=== PATIENT | female | born 1965 | race Caucasian/White ===

== ENCOUNTER 2017-12-03 10:33 | Emergency (ER) | payer SELFPAY ==
[2017-12-03] MEDS ORDERED: Ondansetron HCl/PF 4 MG/2 ML Vial ONE (10:44)
[2017-12-03] MEDS ORDERED: Ketorolac Tromethamine 30 MG/ML VIAL ONE (11:12)
[2017-12-03 11:28] LABS: #Basophils 0.1 thou/uL (0.0-0.2); #Eosinphils 0.1 thou/uL (0.0-0.7); #Lymphocytes 2.5 thou/uL (1.20-3.40); #Monocytes 0.8 thou/uL (0.11-0.59); #Neutrophils 8.2 thou/uL (1.40-6.50); %Basophils 0.9 % (0.0-1.0); %Lymphocytes 21.6 % (21.0-51.0); %Monocytes 6.8 % (0.0-10.0); %Neutrophils 69.6 % (42.0-75.0); Hemoglobin 16.4 g/dL (12.0-16.0); Mean Corpuscular HGB CONC 34.6 g/dL (32.0-36.0); Mean Corpuscular Hemoglobin 31.5 pg (27.0-31.0); Mean Corpuscular Volume 91.2 fl (81.0-99.0); Mean Platelet Volume 7.7 fL (7.4-10.4); Platelet Count 283 thou/uL (130-400); RBC Distribution Width 12.3 % (11.5-14.5); Red Blood Cell (RBC) Count 5.19 mill/uL (4.20-5.40); White Blood Cell (WBC) Count 11.7 thou/uL (4.8-10.8)
[2017-12-03 11:31] LABS: ALT (SGPT) 40 U/L (8-55); AST (SGOT) 24 U/L (5-34); Albumin 4.1 g/dL (3.5-5.0); Alkaline Phosphatase 63 U/L (40-150); Anion Gap 15 mmol/L (10-20); BUN (Urea Nitrogen) 8 mg/dL (7.0-18.7); Bilirubin, Total 0.3 mg/dL (0.2-1.2); CK (CPK) 48 U/L (29-168); CKMB 0.9 ng/mL (0-6.6); Calc. Creatinine Clearance 0 mL/min (70-130); Calcium 9.4 mg/dL (7.8-10.44); Carbon Dioxide 21 mmol/L (22-29); Chloride 107 mmol/L (98-107); Estimated GFR-MDRD Greater than 90; Glucose 97 mg/dL (70-105); Lipase 18 U/L (8-78); Potassium 4.2 mmol/L (3.5-5.1); Protein, Total 8.1 g/dL (6.0-8.3); Sodium 139 mmol/L (136-145); Troponin I Less than 0.010 ng/mL (< 0.028)
--- NOTE | 2017-12-03 11:45 | RAD ---
FRONTAL VIEW OF THE CHEST: COMPARISON: . HISTORY: Chest pain for 24 hours and nausea for 4 days. FINDINGS: Single view of the chest shows a normal sized cardiomediastinal silhouette. There is no evidence of c onsolidation, mass, or pleural effusion. The bones are unremarkable. IMPRESSION: No evidence of acute cardiopulmonary disease. POS: [facility]
[2017-12-03 12:29] LABS: Bilirubin Negative (Negative); Blood, Urine Moderate (Negative); Glucose, Urine (Dipstick) Negative (Negative); Leukocyte Negative (Negative); Nitrite Negative (Negative); Protein, Urine (Dipstick) 100 mg/dL (Neg-Trace); Specific Gravity, Urine 1.027 (1.002-1.036); Urobilinogen 0.2 mg/dL (0.2-1.0); pH, Urine 5.5 (5.0-9.0)
[2017-12-03 12:30] LABS: Clarity Slightly Cloudy (Clear)
[2017-12-03 12:31] LABS: Pregnancy Test - Urine (BHCG) Negative (Negative); Pregu Control Background? CLEAR/WHITE (CLR/WHITE); Pregu Control Bar Appear? YES (CONTROL BAR); Specific Gravity 1.027 (1.002-1.036)
[2017-12-03 12:39] LABS: Squamous Epithelial 0-3 HPF (0-3); WBC/HPF 0-3 HPF (0-3)
[2017-12-03 12:40] LABS: Bacteria/HPF None Seen HPF (None Seen)
[2017-12-03 12:41] LABS: Amphetamine Not Detected (NotDetected); Barbiturates Screen Not Detected (NotDetected); Benzodiazepine Screen Not Detected (NotDetected); Cocaine Metabolite Screen Not Detected (NotDetected); Medtox Control Line Valid? VALID (VALID); Methadone Not Detected (NotDetected); Methamphetamine Not Detected (NotDetected); Opiate Screen Not Detected (NotDetected); Oxycodone Screen Not Detected (NotDetected); Phencyclidine (PCP) Not Detected (NotDetected); THC/Cannabinoid Screen Detected (NotDetected); Tricyclic Screen Not Detected (NotDetected)
--- NOTE | 2017-12-03 13:07 | CT ---
CT ABDOMEN AND PELVIS WITHOUT CONTRAST: COMPARISON: 04/23/15. HISTORY: Chest pain and sharp epigastric pain. TECHNIQUE: Multiple contiguous axial images were obtained in a CT of the abdomen and pelvis without contrast. C oronal reformats were performed. FINDINGS: The liver, gallbladder, kidneys, adrenal glands, spleen, and pancreas are unremarkable, although eval uation is limited on this noncontrast examination. No free air, free fluid or stranding changes are seen in the ad or pelvis. There is a hypodense region in the cervix which may represent a nabothian cyst. Reproductive organs are otherwise unremarkable. No abdominal or pelvic lymphadenopathy are seen. The large and small shanna wel are unremarkable. The appendix is unremarkable. Mild degenerative changes are seen in the spine. The visualized inferior thorax and abdominal wall s oft tissues are unremarkable. IMPRESSION: 1. No evidence of acute intraabdominal/pelvic abnormality. 2. Nabothian cyst. POS: [facility]
[2017-12-05 00:56] LABS: Chlamydia by PCR Not Detected (NotDetected); GC by PCR Not Detected (NotDetected)
== END 2017-12-03 13:50 | disposition home or self-care (01) ==
LOC: SCSER 10:33
DX: R10.13 Epigastric pain (principal)
CPT/HCPCS: 71045; 74176; 80053; 80306; 81003; 81015; 81025; 82553; 83605; 83690; 84484; 85025; 85379; 87480; 87491; 87510; 87591; 87660; 93005; 96374; 96375; J1885; J2405

== ENCOUNTER 2018-03-17 00:29 | Emergency (ER) | payer SELFPAY | END 2018-03-17 03:10 | disposition home or self-care (01) | LOC: ERS 00:29 | DX: J02.9 Acute pharyngitis, unspecified (principal); H93.8X2 Other specified disorders of left ear; F17.210 Nicotine dependence, cigarettes, uncomplicated | CPT/HCPCS: 99283 ==

== ENCOUNTER 2018-03-26 19:16 | Emergency (ER) | payer SELFPAY ==
[2018-03-26 20:12] LABS: #Eosinphils 0.3 thou/uL (0.0-0.7); #Lymphocytes 3.3 thou/uL (1.20-3.40); #Monocytes 0.8 thou/uL (0.11-0.59); #Neutrophils 5.8 thou/uL (1.40-6.50); %Basophils 0.4 % (0.0-1.0); %Eosinophils 2.7 % (0.0-10.0); %Lymphocytes 32.4 % (21.0-51.0); %Monocytes 7.6 % (0.0-10.0); Hemoglobin 12.9 g/dL (12.0-16.0); Mean Corpuscular HGB CONC 34.1 g/dL (32.0-36.0); Mean Corpuscular Hemoglobin 33.1 pg (27.0-31.0); Platelet Count 248 thou/uL (130-400); Red Blood Cell (RBC) Count 3.91 mill/uL (4.20-5.40); White Blood Cell (WBC) Count 10.2 thou/uL (4.8-10.8)
--- NOTE | 2018-03-26 20:32 | RAD ---
AP VIEW OF THE CHEST: 03/26/18 INDICATION: History of anxiety, nausea and vomiting. COMPARISON: Prior exam dated 12/03/17. IMPRESSION: No acute cardiopulmonary abnormality. The examination is unchanged from the comparison study. POS: [facility]
[2018-03-26 20:38] LABS: ALT (SGPT) 13 U/L (8-55); AST (SGOT) 12 U/L (5-34); Albumin 3.5 g/dL (3.5-5.0); Alkaline Phosphatase 74 U/L (40-150); Anion Gap 12 mmol/L (10-20); BUN (Urea Nitrogen) 11 mg/dL (7.0-18.7); Bilirubin, Total Less than 0.2 mg/dL (0.2-1.2); CK (CPK) 114 U/L (29-168); CKMB 1.5 ng/mL (0-6.6); Calc. Creatinine Clearance 0 mL/min (70-130); Calcium 8.5 mg/dL (7.8-10.44); Carbon Dioxide 22 mmol/L (22-29); Chloride 109 mmol/L (98-107); Estimated GFR-MDRD 87; Globulin 3.1 g/dL (2.4-3.5); Glucose 90 mg/dL (70-105); Lipase 30 U/L (8-78); Potassium 3.5 mmol/L (3.5-5.1); Protein, Total 6.6 g/dL (6.0-8.3); Sodium 139 mmol/L (136-145); Troponin I Less than 0.010 ng/mL (< 0.028)
[2018-03-26] MEDS ORDERED: HYDROcodone/Acetaminophen 5/325 mg Tablet ONE (20:53)
--- NOTE | 2018-04-06 11:50 | EKG ---
Test Reason : CHEST PAIN Blood Pressure : / mmHG Vent. Rate : 101 BPM Atrial Rate : 101 BPM P-R Int : 130 ms QRS Dur : 090 ms QT Int : 368 ms P-R-T Axes : 040 031 -11 degrees QTc Int : 477 ms Sinus tachycardia Possible Left atrial enlargement Nonspecific T wave abnormality Abnormal ECG Confirmed by LAYNE PA ([id number]), editor farm journal ADI LÓPEZ ([id number]) on 04/06/2018 11:50:04 AM Referred By: MEGAN PA Confirmed By:LAYNE PA
== END 2018-03-26 20:59 | disposition home or self-care (01) ==
LOC: ERS 19:16
DX: R07.2 Precordial pain (principal); M54.9 Dorsalgia, unspecified; F31.9 Bipolar disorder, unspecified; F17.210 Nicotine dependence, cigarettes, uncomplicated; Z79.899 Other long term (current) drug therapy
CPT/HCPCS: 36415; 71045; 80053; 82553; 83690; 84484; 85025; 93005; 94760

== ENCOUNTER 2019-01-24 13:11 | Emergency (ER) | payer SELFPAY ==
[2019-01-24 13:59] LABS: #Basophils 0.1 thou/uL (0.0-0.2); #Eosinphils 0.1 thou/uL (0.0-0.7); #Lymphocytes 3.5 thou/uL (1.20-3.40); #Monocytes 0.9 thou/uL (0.11-0.59); #Neutrophils 6.9 thou/uL (1.40-6.50); %Basophils 0.9 % (0.0-1.0); %Eosinophils 1.3 % (0.0-10.0); %Lymphocytes 30.4 % (21.0-51.0); %Monocytes 7.8 % (0.0-10.0); %Neutrophils 59.7 % (42.0-75.0); Hemoglobin 14.3 g/dL (12.0-16.0); Mean Corpuscular HGB CONC 33.5 g/dL (32.0-36.0); Mean Corpuscular Hemoglobin 32.4 pg (27.0-31.0); Mean Corpuscular Volume 96.9 fL (78.0-98.0); Mean Platelet Volume 7.6 fL (7.4-10.4); Platelet Count 293 thou/uL (130-400); RBC Distribution Width 11.8 % (11.5-14.5); White Blood Cell (WBC) Count 11.5 thou/uL (4.8-10.8)
[2019-01-24 14:00] LABS: Bilirubin Negative (Negative); Blood, Urine Moderate (Negative); Clarity CLEAR (Clear); Glucose, Urine (Dipstick) Negative (Negative); Leukocyte Negative (Negative); Nitrite Negative (Negative); Protein, Urine (Dipstick) Trace mg/dL (Neg-Trace); Specific Gravity, Urine 1.019 (1.002-1.036); Urobilinogen 0.2 mg/dL (0.2-1.0); pH, Urine 6.5 (5.0-9.0)
[2019-01-24 14:02] LABS: Bacteria/HPF None Seen HPF (None Seen); Hyaline Casts/LPF 0-3 HYALINE CAST LPF (0-3 Hyaline); Pathc Cast-AUWi Flag 0.54 (0-2.49); Pregnancy Test - Urine (BHCG) Negative (Negative); Pregu Control Background? CLEAR/WHITE (CLR/WHITE); Pregu Control Bar Appear? YES (CONTROL BAR); RBC/HPF 21-50 HPF (0-3); Specific Gravity 1.019 (1.002-1.036); Squamous Epithelial 0-3 HPF (0-3); WBC/HPF None Seen HPF (0-3)
[2019-01-24 14:24] LABS: ALT (SGPT) 29 U/L (8-55); AST (SGOT) 12 U/L (5-34); Albumin 4.1 g/dL (3.5-5.0); Alkaline Phosphatase 92 U/L (40-150); Anion Gap 10 mmol/L (10-20); BUN (Urea Nitrogen) 10 mg/dL (9.8-20.1); Bilirubin, Total 0.2 mg/dL (0.2-1.2); Calc. Creatinine Clearance 0 mL/min (70-130); Calcium 9.1 mg/dL (7.8-10.44); Carbon Dioxide 26 mmol/L (22-29); Chloride 106 mmol/L (98-107); Estimated GFR-MDRD 87; Globulin 3.3 g/dL (2.4-3.5); Glucose 77 mg/dL (70-105); Lipase 33 U/L (8-78); Potassium 3.8 mmol/L (3.5-5.1); Protein, Total 7.4 g/dL (6.0-8.3); Sodium 138 mmol/L (136-145)
[2019-01-24] MEDS ORDERED: Ketorolac Tromethamine 30 MG/ML VIAL ONE ×2 (14:50→16:42)
[2019-01-24] MEDS ORDERED: Ondansetron PF 4 MG/2 ML Vial ONE (14:51)
--- NOTE | 2019-01-24 15:43 | CT ---
CT ABDOMEN AND PELVIS NONCONTRAST: 01/24/19 HISTORY: Left flank pain. COMPARISON: 12/03/17. FINDINGS: Each renal collecting system, ureter, and urinary bladder are decompressed without stone evident. Phl eboliths apparent within the retroperitoneum. Lack of contrast limits evaluation for other abnormalities. No evidence of bowel obstruction or infla mmation. Large Nabothian cyst at the uterine cervix is similar in appearance to the previous exam. IMPRESSION: No CT evidence of urinary tract obstruction or calcifications. Chronic type findings are stable. POS: [facility]
--- NOTE | 2019-01-24 16:24 | ULT ---
US Pelvic Transvag W Doppler History: [Pain.] Comparison: CT abdomen and pelvis same day Findings: Real-time grayscale color and spectral analysis of the pelvis was performed. The uterus measures 8.8 x 4.9 x 5.5 cm. The endometrial thickness is 1.5 cm. Right ovary measures 1.4 x 1.6 x 1.6 cm and the left ovary measures 2.5 x 4.1 x 2.9 cm. Multiple larg e nabothian cysts with internal debris is similar to CT examinations. 2.2 cm left ovarian cyst. Adequate vascular flow to both ovaries. Impression: 1. Abnormally thickened endometrium for which an endometrial biopsy recommended. 2. Likely complex nabothian cyst with internal debris. This has similar expected CT appearance from r ecent CT examinations dating back to 2014. Direct visualization is recommended.
== END 2019-01-24 17:03 | disposition home or self-care (01) ==
LOC: ERS 13:11
DX: R10.32 Left lower quadrant pain (principal); F41.9 Anxiety disorder, unspecified; F31.9 Bipolar disorder, unspecified; F17.210 Nicotine dependence, cigarettes, uncomplicated
CPT/HCPCS: 36415; 74176; 76856; 80053; 81003; 81015; 81025; 83690; 85025; 96361; 96374; 96375; 96376; J1885; J2405